=== PATIENT | male | born 1985 | race American Indian/Alaskan Native ===

== ENCOUNTER 2020-05-14 19:48 | Emergency (ER) | payer MEDICAID ==
[~2020-05-14] VITALS: Ht 172.7 cm; Wt 79.5 kg
[~2020-05-14 19:48] MED LIST: CLIN150C8 PO
[2020-05-14] MEDS ORDERED: acetaminophen 325mg tablet PO ONE (21:55)
[2020-05-14 23:25] VITALS: BP 119/81
== END 2020-05-14 23:30 | disposition home or self-care (01) ==
LOC: ER 19:49
DX: S93.402A Sprain of unspecified ligament of left ankle, initial encounter (principal); V00.131A Fall from skateboard, initial encounter; Y93.89 Activity, other specified; Y92.89 Other specified places as the place of occurrence of the external cause; Y99.8 Other external cause status
CPT/HCPCS: 29515; 73590; 73610; 99284

== ENCOUNTER 2020-08-03 09:28 | Emergency (ER) | payer MEDICAID ==
[~2020-08-03] VITALS: Ht 170.2 cm; Wt 68.2 kg
[2020-08-03] MEDS ORDERED: ketorolac tromethamine 15mg/ml inj. IM ONE (11:00)
[2020-08-03 11:14] LABS: BASOPHILS # (AUTO) 0.1 X10'3 (0-0.2); BASOPHILS % (AUTO) 0.6 % (0-1); EOSINOPHILS # (AUTO) 0.3 X10'3 (0-0.9); EOSINOPHILS % (AUTO) 3.5 % (0-6); HEMATOCRIT 34.9 % (42.0-52.0); HEMOGLOBIN 11.9 g/dl (14.0-17.9); LYMPHOCYTES # (AUTO) 1.8 X10'3 (1.1-4.8); LYMPHOCYTES % (AUTO) 19.8 % (21-51); MEAN CORPUSCULAR HEMOGLOBIN 30.7 PG (27.0-31.0); MEAN CORPUSCULAR HGB CONC 34.1 g/dL (33.0-36.5); MEAN CORPUSCULAR VOLUME 90.1 FL (78-98); MEAN PLATELET VOLUME 8.2 FL (7.4-10.4); MONOCYTES # (AUTO) 0.7 X10'3 (0-0.9); MONOCYTES % (AUTO) 7.6 % (2-12); NEUTROPHILS # (AUTO) 6.3 X10'3 (1.8-7.7); NEUTROPHILS % (AUTO) 68.5 % (42-75); PLATELET COUNT 254 X10'3 (140-440); RED BLOOD COUNT 3.87 X10'6 (4.70-6.10); RED CELL DISTRIBUTION WIDTH 14.2 % (11.5-14.5); WHITE BLOOD COUNT 9.3 X10'3 (4.5-11.0)
[2020-08-03 11:36] LABS: ALANINE AMINOTRANSFERASE 125 U/L (12-78); ALBUMIN 3.4 G/DL (3.4-5.0); ALBUMIN/GLOBULIN RATIO 0.8 (1.1-1.5); ALKALINE PHOSPHATASE 92 IU/L (46-116); ANION GAP 8 (8-16); ASPARTATE AMINO TRANSFERASE 64 U/L (10-37); BILIRUBIN,TOTAL 0.6 MG/DL (0.1-1.0); BLOOD UREA NITROGEN 14 MG/DL (7-18); BUN/CREATININE RATIO 15.6 (5.4-32.0); CALCIUM 8.7 MG/DL (8.5-10.1); CHLORIDE 105 MMOL/L (99-107); GLUCOSE 127 MG/DL (70-104); SODIUM 142 MMOL/L (135-145); TOTAL CARBON DIOXIDE 29.4 MMOL/L (24-32); TOTAL PROTEIN 7.8 G/DL (6.4-8.2); eGFR > 90 ML/MIN
[2020-08-03 11:37] LABS: C-REACTIVE PROTEIN 6.18 MG/DL (0.0-0.5)
[2020-08-03] MEDS ORDERED: CEPH-585 PO (11:57)
[2020-08-03 12:29] VITALS: BP 136/88
== END 2020-08-03 12:30 | disposition home or self-care (01) ==
LOC: ER 09:28
DX: M79.671 Pain in right foot (principal); R26.2 Difficulty in walking, not elsewhere classified; R22.41 Localized swelling, mass and lump, right lower limb; F12.90 Cannabis use, unspecified, uncomplicated; F17.200 Nicotine dependence, unspecified, uncomplicated; Z79.2 Long term (current) use of antibiotics; Z79.899 Other long term (current) drug therapy
CPT/HCPCS: 36415; 73610; 73630; 80053; 83880; 85025; 85651; 86140; 96372; 99284; J1885

== ENCOUNTER 2023-06-13 01:52 | Emergency (ER) | payer MEDICAID ==
[~2023-06-13] VITALS: Ht 172.7 cm; Wt 77.3 kg
[~2023-06-13 01:52] MED LIST changes: +CLIN-214 PO; -CLIN150C8 PO
[2023-06-13 01:58] VITALS: BP 125/81; PULSE 101; RESP 19; TEMP 99.2; O2SAT 98
[2023-06-13] MEDS ORDERED: CEPH-585 PO (02:01)
[2023-06-13] MEDS ORDERED: SULF1TAB49 PO (02:01)
[2023-06-13] MEDS ORDERED: TETanus/Pertussis (Acell)/Diphther VAC/PF (Tdap-Adult) 0.5ml syringe IMVAC ONE (02:05)
== END 2023-06-13 02:44 | disposition home or self-care (01) ==
LOC: ER 01:53
DX: L03.113 Cellulitis of right upper limb (principal); F12.90 Cannabis use, unspecified, uncomplicated; Z79.2 Long term (current) use of antibiotics; Z79.899 Other long term (current) drug therapy; Z23 Encounter for immunization
CPT/HCPCS: 10060; 90471; 90715; 99283